=== PATIENT | male | born 1960 | race African-American/Black ===

== ENCOUNTER 2019-04-20 06:23 | Emergency (ER) | payer MEDICAID ==
[~2019-04-20] VITALS: Ht 172.7 cm; Wt 82.0 kg
[2019-04-20 06:27] VITALS: BP 124/80
[2019-04-20] MEDS ORDERED: ACETAMINOPHEN 325MG TABLET PO ONE (08:15)
== END 2019-04-20 09:52 | disposition home or self-care (01) ==
LOC: ER 06:23
DX: M79.602 Pain in left arm (principal); R03.0 Elevated blood-pressure reading, without diagnosis of hypertension
CPT/HCPCS: 73080; 73090; 99283